=== PATIENT | female | born 1980 | race Caucasian/White ===

== ENCOUNTER 2016-10-17 17:19 | Emergency (ER) | payer OTHER ==
[~2016-10-17] VITALS: Ht 162.6 cm; Wt 55.0 kg
[~2016-10-17 17:19] MED LIST: VIST50CA PO; ZOFR4TAB PO
--- NOTE | 2016-10-17 18:01 | PD ---
HPI Chief Complaint: BA Time Seen by Provider: 18:01 Travel History International Travel<30 days: No Contact w/Intl Traveler<30days: No Traveled to known affect area: No History of Present Illness HPI 35 year-old female presents to the emergency department under a Gutierrez act for psychiatric evaluation. Patient states she got in argument with her mother. She made suicidal statements. Patient does not want to talk about this at this time. Reports tobacco cigarette smoking. Denies any illicit drug use. Denies any acute medical needs. No other symptoms to report. PFSH Past Medical History Anxiety: Yes Depression: Yes Diminished Hearing: No Musculoskeletal: Yes (BACK NECK PAIN) Reproductive: Yes (4 RIGHT OVARIAN CYSTS) Immunizations Current: Yes : 1 Para: 1 Ovarian Cysts: Yes (RT OVARIAN SYST,OVARIAN FIBROID) Past Surgical History Abdominal Surgery: Yes (ABD. LAPROSCOPIC SX. 05/22/06; REPAIR OF KNIFE WOUND TO ABDOMEN) Gynecologic Surgery: Yes (ENDOMETRIOSIS; UTERINE TUMOR REMOVED 05/07;OVARIAN CYSTS 2008) Social History Alcohol Use: No Tobacco Use: Yes (1 PPD) Substance Use: No Allergies-Medications (Allergen,Severity, Reaction): Coded Allergies: Biaxin (Verified Allergy, Severe, HIVES, 10/17/16) Darvocet-N 100 (Verified Allergy, Mild, RASH, 10/17/16) Demerol (Verified Allergy, Mild, ITCH, 10/17/16) Reported Meds & Prescriptions Reported Meds & Active Scripts Active Vistaril (Hydroxyzine Pamoate) 50 Mg Cap 50 Mg PO QID PRN Zofran (Ondansetron HCl) 4 Mg Tab 4 Mg PO Q6HR PRN Reported Trazodone (Trazodone HCl) 50 Mg Tab 50 Mg PO HS Latuda (Lurasidone) 40 Mg Tab 40 Mg PO DAILY Review of Systems Except as stated in HPI: all other systems reviewed are Neg Physical Exam Narrative GENERAL: Well-nourished female patient, in no acute distress SKIN: Focused skin assessment warm/dry. HEAD: Atraumatic. Normocephalic. EYES: Pupils equal and round. No scleral icterus. No injection or drainage. ENT: No nasal bleeding or discharge. Mucous membranes pink and moist. NECK: Trachea midline. No JVD. CARDIOVASCULAR: Regular rate and rhythm. No murmur appreciated. RESPIRATORY: No accessory muscle use. Clear to auscultation. Breath sounds equal bilaterally. GASTROINTESTINAL: Abdomen soft, non-tender, nondistended. Hepatic and splenic margins not palpable. MUSCULOSKELETAL: No obvious deformities. No clubbing. No cyanosis. No edema. NEUROLOGICAL: Awake and alert. No obvious cranial nerve deficits. Motor grossly within normal limits. Normal speech. Data Data Last Documented VS Vital Signs Date Time Temp Pulse Resp B/P Pulse Ox O2 Delivery O2 Flow Rate FiO2 10/17/16 19:47 98.1 79 16 121/73 98 Room Air Orders Complete Blood Count With Diff (10/17/16 17:54) Basic Metabolic Panel (Bmp) (10/17/16 17:54) Ed Urine Pregnancytest Poc (10/17/16 17:54) Psych Screen (10/17/16 17:54) Drug Screen, Random Urine (10/17/16 17:54) Alcohol (Ethanol) (10/17/16 17:54) Labs Laboratory Tests Test 10/17/16 17:54 White Blood Count 7.2 TH/MM3 Red Blood Count 4.27 MIL/MM3 Hemoglobin 13.2 GM/DL Hematocrit 38.8 % Mean Corpuscular Volume 90.9 FL Mean Corpuscular Hemoglobin 30.8 PG Mean Corpuscular Hemoglobin 33.9 % Concent Red Cell Distribution Width 13.2 % Platelet Count 140 TH/MM3 Mean Platelet Volume 12.2 FL Neutrophils (%) (Auto) 48.3 % Lymphocytes (%) (Auto) 39.3 % Monocytes (%) (Auto) 6.5 % Eosinophils (%) (Auto) 4.8 % Basophils (%) (Auto) 1.1 % Neutrophils # (Auto) 3.5 TH/MM3 Lymphocytes # (Auto) 2.8 TH/MM3 Monocytes # (Auto) 0.5 TH/MM3 Eosinophils # (Auto) 0.3 TH/MM3 Basophils # (Auto) 0.1 TH/MM3 CBC Comment AUTO DIFF Differential Comment AUTO DIFF CONFIRMED Platelet Estimate NORMAL Platelet Morphology Comment NORMAL Sodium Level 140 MEQ/L Potassium Level 4.5 MEQ/L Chloride Level 106 MEQ/L Carbon Dioxide Level 24.7 MEQ/L Anion Gap 9 MEQ/L Blood Urea Nitrogen 16 MG/DL Creatinine 0.85 MG/DL Estimat Glomerular Filtration 76 ML/MIN Rate Random Glucose 94 MG/DL Calcium Level 9.0 MG/DL Urine Opiates Screen NEG Urine Barbiturates Screen NEG Urine Amphetamines Screen NEG Urine Benzodiazepines Screen NEG Urine Cocaine Screen NEG Urine Cannabinoids Screen NEG Ethyl Alcohol Level LESS THAN 3 MG/DL MDM Medical Decision Making Medical Screen Exam Complete: Yes Emergency Medical Condition: Yes Medical Record Reviewed: Yes Differential Diagnosis Mood disorder versus personality disorder versus adjustment reaction disorder Narrative Course 35 year-old female presents to the emergency department under Gutierrez act for psychiatric evaluation. Patient appears without distress. She did make suicidal statements earlier today following argument with her mother. CBC and BMP are without acute concern. Toxicology is negative. EtOH is less than 3. Patient is medically cleared and undergo psychiatric screening for further evaluation and disposition. Mental health screening discussed with the patient. Psychiatric screen ordered. Diagnosis Primary Impression: Adjustment reaction Qualified Code: F43.21 - Adjustment disorder with depressed mood Condition: Stable Fatuma Torres Oct 17, 2016 18:01
[2016-10-17 19:01] LABS: AMPHETAMINE, URINE NEG (NEG); BARBITURATES, URINE NEG (NEG); COCAINE, URINE NEG (NEG)
[2016-10-17 19:05] LABS: AUTOMATED NEUTROPHIL # 3.5 TH/MM3 (1.8-7.7); BASOPHIL # 0.1 TH/MM3 (0-0.2); BASOPHIL % 1.1 % (0.0-2.0); EOSINOPHIL # 0.3 TH/MM3 (0-0.4); EOSINOPHIL % 4.8 % (0.0-4.0); HEMATOCRIT 38.8 % (35.0-46.0); LYMPH % 39.3 % (9.0-44.0); LYMPHOCYTE # 2.8 TH/MM3 (1.0-4.8); MEAN CELL VOLUME 90.9 FL (80.0-100.0); MEAN CORPUSCULAR HEMOGLOBIN 30.8 PG (27.0-34.0); MEAN CORPUSCULAR HGB CONC 33.9 % (32.0-36.0); MONO % 6.5 % (0.0-8.0); NEUT % 48.3 % (16.0-70.0); PLATELET COUNT 140 TH/MM3 (150-450); RED BLOOD COUNT 4.27 MIL/MM3 (4.00-5.30); RED CELL DISTRIBUTION WIDTH 13.2 % (11.6-17.2); WHITE BLOOD COUNT 7.2 TH/MM3 (4.0-11.0)
[2016-10-17 19:09] LABS: HEMO FLAGS AUTO DIFF
[2016-10-17 19:26] LABS: ANION GAP 9 MEQ/L (5-15); BICARBONATE 24.7 MEQ/L (21.0-32.0); BLOOD UREA NITROGEN 16 MG/DL (7-18); CHLORIDE 106 MEQ/L (98-107); GLOMERULAR FILTRATION RATE 76 ML/MIN (>89); SODIUM (NA) 140 MEQ/L (136-145)
[2016-10-17 19:27] LABS: POTASSIUM 4.5 MEQ/L (3.5-5.1)
[2016-10-17 19:47] VITALS: BP 121/73; PULSE 79; RESP 16; TEMP 98.1; O2SAT 98
[2016-10-17 20:06] LABS: PLATELET ESTIMATE SMEAR NORMAL (NORMAL); PLATELET MORPHOLOGY NORMAL (NORMAL); SCAN/DIFF AUTO DIFF CONFIRMED
[2016-10-17] MEDS ORDERED: LURA40 PO (20:06)
[2016-10-17] MEDS ORDERED: TRAZ50TA12 PO (20:07)
[2016-10-18 01:40] VITALS: BP 106/60; PULSE 87; RESP 17; O2SAT 98
[2016-10-18 06:10] VITALS: BP 100/68; PULSE 77; RESP 17; O2SAT 99
[2016-10-18 10:00] VITALS: BP 105/65; PULSE 95; RESP 18
[2016-10-18] MEDS ORDERED: diphenhydrAMINE HCL 50 MG CAP PO ONE (12:45)
--- NOTE | 2016-10-18 13:54 | PD ---
History of Present Illness Chief Complaint: Psychiatric Symptoms Time Seen by Provider: 13:30 Travel History International Travel<30 Days: No Contact w/Intl Traveler<30days: No Known affected area: No Legal Status Legal Status: Gutierrez Act Gutierrez Act Signed By: Alison Dowd Gutierrez Act Comment: 10/17/2016 1646 PM History of Present Illness: History of Present Illness HPI 35 year-old female with reported history of bipolar disorder and anxiety who presents to the emergency department under a Gutierrez act initiated by REBECCA . The report stat es the following " Celena was feeling suicidal and was arguing with her mom. Celena wants to kill herself but she could not tell me why". She did not make any attempt at harming herself. She does report that she tried to cut her arm a month ago and has some very superficial scratches on her left arm. She was monitored in [facility] and presented no behavioral concerns and no suicidality. EMR is reviewed. No previous contact with [facility] [place] [place] psychiatry dept. Patient is seen. She is alert and oriented, calm engaging female with short hair. Maintaining basic hygiene. Speech is clear, logical. No psychosis, no afia or hypomania. She reports feeling anxious and is seeking benzos such as Valium, which she reports she has had in the past. There is no suicidal or homicidal ideation. States " One day I do feel suicidal one day I don't". She also reports continued symptoms of anxiety. She reports she was involved in an argument with her mother and wanted to get out of the house and therefore she called the police to take her to [facility]. She also reports that her current medications are not working well in controlling her mood swings as well as her anxiety. PFSH Past Medical History Anxiety: Yes Depression: Yes Diminished Hearing: No Musculoskeletal: Yes (BACK NECK PAIN) Reproductive: Yes (4 RIGHT OVARIAN CYSTS) Immunizations Current: Yes Tetanus Vaccination: > 5 Years Influenza Vaccination: No ?: Unknown LMP: doesn't remember : 1 Para: 1 Ovarian Cysts: Yes (RT OVARIAN CYST,OVARIAN FIBROID) Past Surgical History Abdominal Surgery: Yes (ABD. LAPROSCOPIC SX. 05/22/06; REPAIR OF KNIFE WOUND TO ABDOMEN) Gynecologic Surgery: Yes (ENDOMETRIOSIS; UTERINE TUMOR REMOVED 05/07;OVARIAN CYSTS 2008) Psychiatric History Psychiatric History Hx Psychiatric Treatment: Patient with a stated history of depression and anxiety. She states recenty outpatient treatment at [facility]. History of Inpatient Treatment: No Guns or firearms in home: No Social History Single female. Unemployed. Lives with her mother. Hx Alcohol Use: No Hx Tobacco Use: Yes (1 PPD) Hx Substance Use: Yes (1 ppd) Substance Use Type: Nicotine/Cigarettes Other Substances Used: Current toxicology is negative Hx of Substance Use Treatment: No Family Psychiatric History Negative Allergies-Medications (Allergen,Severity, Reaction): Coded Allergies: Biaxin (Verified Allergy, Severe, HIVES, 10/17/16) Darvocet-N 100 (Verified Allergy, Mild, RASH, 10/17/16) Demerol (Verified Allergy, Mild, ITCH, 10/17/16) Reported Meds & Prescriptions Reported Meds & Active Scripts Active Vistaril (Hydroxyzine Pamoate) 50 Mg Cap 50 Mg PO QID PRN Zofran (Ondansetron HCl) 4 Mg Tab 4 Mg PO Q6HR PRN Reported Trazodone (Trazodone HCl) 50 Mg Tab 50 Mg PO HS Latuda (Lurasidone) 40 Mg Tab 40 Mg PO DAILY Review of Systems Except as stated in HPI: all other systems reviewed are Neg Exam Alert: Yes [place]: Person (ox4) Mood: Anxious Affect: Appropriate Speech: Clear, Logical Eye Contact: Normal Memory Intact: Comment (No impairmetn) Hallucinations: Other (Negative) Delusions: No Suicidal: Ideation (denies any) Homicidal: Ideation (denies any) Insight/Judgement Fair. Not impaired. MDM Medical Decision Making Medical Record Reviewed: Yes Assessment/Plan 35 year old female under a BA after she reported feeling suicidal in context of an argument with her mother. She did not make any attempts at harming herself. At this time she is requesting discharge and wants to follow up at [facility]. She does not meet criteria to remain under BA. Lift BA. Recommend follow up with [facility]. Orders Complete Blood Count With Diff (10/17/16 17:54) Basic Metabolic Panel (Bmp) (10/17/16 17:54) Ed Urine Pregnancytest Poc (10/17/16 17:54) Psych Screen (10/17/16 17:54) Drug Screen, Random Urine (10/17/16 17:54) Alcohol (Ethanol) (10/17/16 17:54) Diet Regular Basic (10/18/16 Breakfast) Diet Regular Basic (10/18/16 Lunch) Diphenhydramine (Benadryl) (10/18/16 12:45) Hydroxyzine Pamoate (Vistaril) (10/18/16 13:45) Results Vital Signs Date Time Temp Pulse Resp B/P Pulse Ox O2 Delivery O2 Flow Rate FiO2 10/18/16 10:00 95 18 105/65 Room Air 10/18/16 06:10 77 17 100/68 99 Room Air 10/18/16 01:40 87 17 106/60 98 Room Air 10/17/16 19:47 98.1 79 16 121/73 98 Room Air Laboratory Tests Test 10/17/16 17:54 White Blood Count 7.2 Red Blood Count 4.27 Hemoglobin 13.2 Hematocrit 38.8 Mean Corpuscular Volume 90.9 Mean Corpuscular Hemoglobin 30.8 Mean Corpuscular Hemoglobin 33.9 Concent Red Cell Distribution Width 13.2 Platelet Count 140 Mean Platelet Volume 12.2 Neutrophils (%) (Auto) 48.3 Lymphocytes (%) (Auto) 39.3 Monocytes (%) (Auto) 6.5 Eosinophils (%) (Auto) 4.8 Basophils (%) (Auto) 1.1 Neutrophils # (Auto) 3.5 Lymphocytes # (Auto) 2.8 Monocytes # (Auto) 0.5 Eosinophils # (Auto) 0.3 Basophils # (Auto) 0.1 CBC Comment AUTO DIFF Differential Comment AUTO DIFF CONFIRMED Platelet Estimate NORMAL Platelet Morphology Comment NORMAL Sodium Level 140 Potassium Level 4.5 Chloride Level 106 Carbon Dioxide Level 24.7 Anion Gap 9 Blood Urea Nitrogen 16 Creatinine 0.85 Estimat Glomerular Filtration 76 Rate Random Glucose 94 Calcium Level 9.0 Urine Opiates Screen NEG Urine Barbiturates Screen NEG Urine Amphetamines Screen NEG Urine Benzodiazepines Screen NEG Urine Cocaine Screen NEG Urine Cannabinoids Screen NEG Ethyl Alcohol Level LESS THAN 3 Diagnosis Primary Impression: Adjustment reaction Psychiatrically Cleared: Yes Med/ Other Pt Specific Info: No Change to Meds Disposition: 01 DISCHARGE HOME Condition: Stable Problem Qualifiers Primary Impression: Adjustment reaction Qualified Code: F43.23 - Adjustment disorder with mixed anxiety and depressed mood Haylie Michel Oct 18, 2016 13:54
[2016-10-18 14:00] VITALS: BP 105/65; TEMP 98
== END 2016-10-18 14:10 | disposition home or self-care (01) ==
LOC: NEDAMB 17:19 → NEPJ 10-18 14:10
DX: F43.23 Adjustment disorder with mixed anxiety and depressed mood (principal); Z79.899 Other long term (current) drug therapy
CPT/HCPCS: 80048; 80307; 84703; 85025; 99284; Q0163

== ENCOUNTER 2016-12-05 11:45 | Emergency (ER) | payer OTHER ==
[~2016-12-05] VITALS: Ht 165.1 cm; Wt 61.0 kg
[~2016-12-05 11:45] MED LIST changes: +LURA40 PO; +TRAZ50TA12 PO
[2016-12-05 12:24] VITALS: BP 132/62; PULSE 75; RESP 16; TEMP 98.6; O2SAT 100
--- NOTE | 2016-12-05 12:37 | PD ---
HPI Chief Complaint: Psychiatric Symptoms Time Seen by Provider: 12:06 Travel History International Travel<30 days: No Contact w/Intl Traveler<30days: No Traveled to known affect area: No History of Present Illness HPI The patient is a 36-year-old female who presents to the emergency department via police as a Gutierrez act. According to the police affidavit the patient was suicidal. The patient states she has a history of bipolar affective disorder was recently at [facility] where her psychiatrist is located, Dr. Larsen. The patient told her psychiatrist she was not ready for discharge earlier today, however, was discharged. She does note fossa suicide, however, has thoughts of suicide every day. She has attempted to harm herself in the past by cutting her wrists bilaterally. She also has a history of overdose. She does note intermittent thoughts of suicide currently, feels like she is still too unstable to be discharged because she is having highs and lows secondary to the bipolar affective disorder. She also notes increasing anxiety and a panic attack earlier today. She denies any illicit drug use or alcohol use today. She denies any current physical complaints. The patient was living with her mother, however, states her father was supposed to pick her up tonight at 6 PM to [place]. [facility] Past Medical History Anxiety: Yes Depression: Yes Diminished Hearing: No Musculoskeletal: Yes (BACK NECK PAIN) Reproductive: Yes (4 RIGHT OVARIAN CYSTS) Immunizations Current: Yes ?: Unknown : 1 Para: 1 Ovarian Cysts: Yes (RT OVARIAN CYST,OVARIAN FIBROID) Past Surgical History Abdominal Surgery: Yes (ABD. LAPROSCOPIC SX. 05/22/06; REPAIR OF KNIFE WOUND TO ABDOMEN) Gynecologic Surgery: Yes (ENDOMETRIOSIS; UTERINE TUMOR REMOVED 05/07;OVARIAN CYSTS 2008) Social History Alcohol Use: No Tobacco Use: No Substance Use: No Allergies-Medications (Allergen,Severity, Reaction): Coded Allergies: clarithromycin (Unverified Allergy, Severe, HIVES, 11/12/16) acetaminophen (Unverified Allergy, Mild, RASH, 11/12/16) meperidine (Unverified Allergy, Mild, ITCH, 11/12/16) propoxyphene (Unverified Allergy, Mild, RASH, 11/12/16) Reported Meds & Prescriptions Reported Meds & Active Scripts Active Vistaril (Hydroxyzine Pamoate) 50 Mg Cap 50 Mg PO QID PRN Zofran (Ondansetron HCl) 4 Mg Tab 4 Mg PO Q6HR PRN Reported Trazodone (Trazodone HCl) 50 Mg Tab 50 Mg PO HS Latuda (Lurasidone) 40 Mg Tab 40 Mg PO DAILY Review of Systems Except as stated in HPI: all other systems reviewed are Neg Psychiatric: Positive: Depression, Suicidal Ideations, Mood Disorder Physical Exam Narrative GENERAL: Awake, alert, nontoxic-appearing 36-year-old female who appears her stated age and is in no acute respiratory distress. SKIN: Focused skin assessment warm/dry. HEAD: Atraumatic. Normocephalic. EYES: No injection or drainage. ENT: No nasal bleeding or discharge. Mucous membranes pink and moist. NECK: Trachea midline. No JVD. CARDIOVASCULAR: Regular rate and rhythm. No murmur appreciated. RESPIRATORY: No accessory muscle use. Clear to auscultation. Breath sounds equal bilaterally. GASTROINTESTINAL: Abdomen soft, non-tender, nondistended. Hepatic and splenic margins not palpable. MUSCULOSKELETAL: Old appearing very superficial scars to the volar aspect of the forearms bilateral. NEUROLOGICAL: Awake and alert. No obvious cranial nerve deficits. Motor grossly within normal limits. Normal speech. Nonfocal. PSYCHIATRIC: Appropriate mood and affect; insight and judgment normal. Data Data Last Documented VS Vital Signs Date Time Temp Pulse Resp B/P (MAP) Pulse Ox O2 Delivery O2 Flow Rate FiO2 12/05/16 12:24 98.6 75 16 132/62 (85) 100 Orders Orders Complete Blood Count With Diff (12/05/16 12:19) Comprehensive Metabolic Panel (12/05/16 12:19) Thyroid Stimulating Hormone (12/05/16 12:19) Psych Screen (12/05/16 12:19) Drug Screen, Random Urine (12/05/16 12:19) Alcohol (Ethanol) (12/05/16 12:19) Diet Regular Basic (12/05/16 Lunch) Labs Laboratory Tests Test 12/05/16 12:34 12/05/16 12:55 White Blood Count 7.7 TH/MM3 Red Blood Count 3.95 MIL/MM3 Hemoglobin 11.8 GM/DL Hematocrit 35.9 % Mean Corpuscular Volume 91.0 FL Mean Corpuscular Hemoglobin 29.8 PG Mean Corpuscular Hemoglobin Concent 32.8 % Red Cell Distribution Width 13.7 % Platelet Count 227 TH/MM3 Mean Platelet Volume 9.3 FL Neutrophils (%) (Auto) 56.2 % Lymphocytes (%) (Auto) 34.7 % Monocytes (%) (Auto) 5.3 % Eosinophils (%) (Auto) 2.6 % Basophils (%) (Auto) 1.2 % Neutrophils # (Auto) 4.3 TH/MM3 Lymphocytes # (Auto) 2.7 TH/MM3 Monocytes # (Auto) 0.4 TH/MM3 Eosinophils # (Auto) 0.2 TH/MM3 Basophils # (Auto) 0.1 TH/MM3 CBC Comment DIFF FINAL Differential Comment Blood Urea Nitrogen 13 MG/DL Creatinine 0.72 MG/DL Random Glucose 73 MG/DL Total Protein 7.9 GM/DL Albumin 4.0 GM/DL Calcium Level 9.0 MG/DL Alkaline Phosphatase 46 U/L Aspartate Amino Transf (AST/SGOT) 19 U/L Alanine Aminotransferase (ALT/SGPT) 54 U/L Total Bilirubin 0.3 MG/DL Sodium Level 138 MEQ/L Potassium Level 3.8 MEQ/L Chloride Level 105 MEQ/L Carbon Dioxide Level 26.2 MEQ/L Anion Gap 7 MEQ/L Estimat Glomerular Filtration Rate 92 ML/MIN Thyroid Stimulating Hormone 3rd Gen 1.310 uIU/ML Ethyl Alcohol Level LESS THAN 3 MG/DL Urine Opiates Screen NEG Urine Barbiturates Screen NEG Urine Amphetamines Screen NEG Urine Benzodiazepines Screen NEG Urine Cocaine Screen NEG Urine Cannabinoids Screen NEG MDM Medical Decision Making Medical Screen Exam Complete: Yes Emergency Medical Condition: Yes Medical Record Reviewed: Yes Interpretation(s) Laboratory Tests Test 12/05/16 12:34 12/05/16 12:55 White Blood Count 7.7 TH/MM3 Red Blood Count 3.95 MIL/MM3 Hemoglobin 11.8 GM/DL Hematocrit 35.9 % Mean Corpuscular Volume 91.0 FL Mean Corpuscular Hemoglobin 29.8 PG Mean Corpuscular Hemoglobin Concent 32.8 % Red Cell Distribution Width 13.7 % Platelet Count 227 TH/MM3 Mean Platelet Volume 9.3 FL Neutrophils (%) (Auto) 56.2 % Lymphocytes (%) (Auto) 34.7 % Monocytes (%) (Auto) 5.3 % Eosinophils (%) (Auto) 2.6 % Basophils (%) (Auto) 1.2 % Neutrophils # (Auto) 4.3 TH/MM3 Lymphocytes # (Auto) 2.7 TH/MM3 Monocytes # (Auto) 0.4 TH/MM3 Eosinophils # (Auto) 0.2 TH/MM3 Basophils # (Auto) 0.1 TH/MM3 CBC Comment DIFF FINAL Differential Comment Blood Urea Nitrogen 13 MG/DL Creatinine 0.72 MG/DL Random Glucose 73 MG/DL Total Protein 7.9 GM/DL Albumin 4.0 GM/DL Calcium Level 9.0 MG/DL Alkaline Phosphatase 46 U/L Aspartate Amino Transf (AST/SGOT) 19 U/L Alanine Aminotransferase (ALT/SGPT) 54 U/L Total Bilirubin 0.3 MG/DL Sodium Level 138 MEQ/L Potassium Level 3.8 MEQ/L Chloride Level 105 MEQ/L Carbon Dioxide Level 26.2 MEQ/L Anion Gap 7 MEQ/L Estimat Glomerular Filtration Rate 92 ML/MIN Thyroid Stimulating Hormone 3rd Gen 1.310 uIU/ML Ethyl Alcohol Level LESS THAN 3 MG/DL Urine Opiates Screen NEG Urine Barbiturates Screen NEG Urine Amphetamines Screen NEG Urine Benzodiazepines Screen NEG Urine Cocaine Screen NEG Urine Cannabinoids Screen NEG Differential Diagnosis Differential diagnosis includes bipolar affective disorder, schizophrenia, substance induced mood disorder, adjustment reaction, stress reaction, malingering. Narrative Course Labs were drawn and sent. Psychiatric evaluation was ordered. Labs are unremarkable. The patient is medically cleared to be evaluated by psychiatry. Diagnosis Primary Impression: Bipolar affective disorder Qualified Codes: F31.62 - Bipolar disorder, current episode mixed, moderate Condition: Stable Antonio Schwab MD Dec 05, 2016 12:37
[2016-12-05 12:48] LABS: AUTOMATED NEUTROPHIL # 4.3 TH/MM3 (1.8-7.7); BASOPHIL # 0.1 TH/MM3 (0-0.2); BASOPHIL % 1.2 % (0.0-2.0); EOSINOPHIL # 0.2 TH/MM3 (0-0.4); EOSINOPHIL % 2.6 % (0.0-4.0); HEMATOCRIT 35.9 % (35.0-46.0); HEMO FLAGS DIFF FINAL; LYMPH % 34.7 % (9.0-44.0); LYMPHOCYTE # 2.7 TH/MM3 (1.0-4.8); MEAN CORPUSCULAR HEMOGLOBIN 29.8 PG (27.0-34.0); MEAN CORPUSCULAR HGB CONC 32.8 % (32.0-36.0); MONO % 5.3 % (0.0-8.0); NEUT % 56.2 % (16.0-70.0); PLATELET COUNT 227 TH/MM3 (150-450); RED BLOOD COUNT 3.95 MIL/MM3 (4.00-5.30); RED CELL DISTRIBUTION WIDTH 13.7 % (11.6-17.2); WHITE BLOOD COUNT 7.7 TH/MM3 (4.0-11.0)
[2016-12-05 13:01] LABS: ALT (GPT) 54 U/L (10-53); ANION GAP 7 MEQ/L (5-15); AST (GOT) 19 U/L (15-37); BICARBONATE 26.2 MEQ/L (21.0-32.0); BLOOD UREA NITROGEN 13 MG/DL (7-18); CHLORIDE 105 MEQ/L (98-107); GLOMERULAR FILTRATION RATE 92 ML/MIN (>89); POTASSIUM 3.8 MEQ/L (3.5-5.1); SODIUM (NA) 138 MEQ/L (136-145)
[2016-12-05 13:11] LABS: ALKALINE PHOSPHATASE 46 U/L (45-117); TOTAL BILIRUBIN ADULT 0.3 MG/DL (0.2-1.0)
[2016-12-05 13:18] LABS: ALCOHOL LESS THAN 3 MG/DL (0-5)
[2016-12-05 16:47] VITALS: BP 132/62; PULSE 75; RESP 18; O2SAT 100
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
--- NOTE | 2016-12-05 17:25 | PD ---
Physical Exam Date Seen by Provider: Dec 05, 2016 Time Seen by Provider: 17:23 Narrative Please refer to previous providers note. I was asked to disposition the patient. In short patient was Brenda acted and her Gutierrez act was listed. She has no medical issues. I was asked to disposition. Data Data Last Documented VS Vital Signs Date Time Temp Pulse Resp B/P (MAP) Pulse Ox O2 Delivery O2 Flow Rate FiO2 12/05/16 16:50 12/05/16 16:47 75 18 100 Room Air 12/05/16 12:24 98.6 Orders Orders Complete Blood Count With Diff (12/05/16 12:19) Comprehensive Metabolic Panel (12/05/16 12:19) Thyroid Stimulating Hormone (12/05/16 12:19) Psych Screen (12/05/16 12:19) Drug Screen, Random Urine (12/05/16 12:19) Alcohol (Ethanol) (12/05/16 12:19) Diet Regular Basic (12/05/16 Lunch) Diet Regular Basic (12/05/16 Dinner) Labs Laboratory Tests Test 12/05/16 12:34 12/05/16 12:55 White Blood Count 7.7 TH/MM3 Red Blood Count 3.95 MIL/MM3 Hemoglobin 11.8 GM/DL Hematocrit 35.9 % Mean Corpuscular Volume 91.0 FL Mean Corpuscular Hemoglobin 29.8 PG Mean Corpuscular Hemoglobin Concent 32.8 % Red Cell Distribution Width 13.7 % Platelet Count 227 TH/MM3 Mean Platelet Volume 9.3 FL Neutrophils (%) (Auto) 56.2 % Lymphocytes (%) (Auto) 34.7 % Monocytes (%) (Auto) 5.3 % Eosinophils (%) (Auto) 2.6 % Basophils (%) (Auto) 1.2 % Neutrophils # (Auto) 4.3 TH/MM3 Lymphocytes # (Auto) 2.7 TH/MM3 Monocytes # (Auto) 0.4 TH/MM3 Eosinophils # (Auto) 0.2 TH/MM3 Basophils # (Auto) 0.1 TH/MM3 CBC Comment DIFF FINAL Differential Comment Blood Urea Nitrogen 13 MG/DL Creatinine 0.72 MG/DL Random Glucose 73 MG/DL Total Protein 7.9 GM/DL Albumin 4.0 GM/DL Calcium Level 9.0 MG/DL Alkaline Phosphatase 46 U/L Aspartate Amino Transf (AST/SGOT) 19 U/L Alanine Aminotransferase (ALT/SGPT) 54 U/L Total Bilirubin 0.3 MG/DL Sodium Level 138 MEQ/L Potassium Level 3.8 MEQ/L Chloride Level 105 MEQ/L Carbon Dioxide Level 26.2 MEQ/L Anion Gap 7 MEQ/L Estimat Glomerular Filtration Rate 92 ML/MIN Thyroid Stimulating Hormone 3rd Gen 1.310 uIU/ML Ethyl Alcohol Level LESS THAN 3 MG/DL Urine Opiates Screen NEG Urine Barbiturates Screen NEG Urine Amphetamines Screen NEG Urine Benzodiazepines Screen NEG Urine Cocaine Screen NEG Urine Cannabinoids Screen NEG MDM Medical Record Reviewed: Yes Supervised Visit with GABBY: No Narrative Course 36-year-old female that presents to the ED for evaluation of psychiatric illness. Please refer to previous provider note. I was asked to disposition patient. Patient has no medical complaints. Patient was seen by psychiatrist who agrees that she's not hurt herself and lifted the Gutierrez act. Patient will be discharged home with instructions to follow with outpatient psychiatrist. See ED worsening symptoms. Follow-up with PCP. Diagnosis Primary Impression: PTSD (post-traumatic stress disorder) Additional Impression: Bipolar affective disorder Qualified Codes: F31.62 - Bipolar disorder, current episode mixed, moderate Patient Instructions: General Instructions, Post Traumatic Stress Disorder (ED) , Medical Clearance for Psychiatric Care (ED) Departure Forms: Tests/Procedures Additional Instruction: DX: PTSD Please return to ED if symptoms worsen Disposition: 01 DISCHARGE HOME Condition: Stable Klever Granda Dec 05, 2016 17:25
== END 2016-12-05 19:07 | disposition home or self-care (01) ==
LOC: NEPE 11:45 → NEPJ 19:07
DX: F31.62 Bipolar disorder, current episode mixed, moderate (principal); F43.10 Post-traumatic stress disorder, unspecified; Z79.899 Other long term (current) drug therapy; Z86.59 Personal history of other mental and behavioral disorders; Z87.39 Personal history of other diseases of the musculoskeletal system and connective tissue; Z87.42 Personal history of other diseases of the female genital tract
CPT/HCPCS: 80053; 80307; 84443; 85025; 99284

== ENCOUNTER 2016-12-31 11:48 | Emergency (ER) | payer SELFPAY ==
[~2016-12-31] VITALS: Ht 162.6 cm; Wt 59.0 kg
[2016-12-31 11:54] VITALS: BP 140/60; PULSE 110; RESP 18; TEMP 98.5; O2SAT 97
--- NOTE | 2016-12-31 12:07 | PD ---
Data Data Last Documented VS Vital Signs Date Time Temp Pulse Resp B/P (MAP) Pulse Ox O2 Delivery O2 Flow Rate FiO2 12/31/16 16:31 12/31/16 12:25 18 12/31/16 11:54 98.5 110 97 Room Air Orders Orders Psych Screen (12/31/16 12:34) MDM Medical Record Reviewed: Yes Supervised Visit with GABBY: No Narrative Course This report is in ERROR Please disregard this report and all prior copies ! This report is in ERROR Please disregard this report and all prior copies ! This report is in ERROR Please disregard this report and all prior copies ! Maxi Thorne MD Dec 31, 2016 12:07
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
[2016-12-31] MEDS ORDERED: SERO200T PO (12:33)
[2016-12-31] MEDS ORDERED: BUSP15TA PO (12:33)
[2016-12-31] MEDS ORDERED: ARIP1TAB5 PO (12:33)
[2016-12-31] MEDS ORDERED: LEXA5TAB PO (12:33)
== END 2016-12-31 16:44 | disposition home or self-care (01) ==
LOC: NEPB 11:48
DX: F32.9 Major depressive disorder, single episode, unspecified (principal)
CPT/HCPCS: 99283

== ENCOUNTER 2018-01-14 14:40 | Observation (INO) ==
--- NOTE | 2018-01-14 17:21 | ED ---
HPI General Chief complaint: Skin/Abscess/Foreign Body Stated complaint: Insect Bites Time Seen by Provider: 01/14/18 16:54 Source: patient Mode of arrival: ambulatory Limitations: no limitations History of Present Illness HPI narrative: Patient is a 37-year-old female here today for multiple spots to skin that appeared yesterday. They started out as insect bite looking and now has significant cellulitis surrounding them. She has beginnings of abscess formation to right forearm with surrounding cellulitis, generalized to right wrist, large area of cellulitis to left medial thigh and to right lateral thigh. She was just in [facility] for depression and cutting she takes Seroquel trazodone BuSpar. She reporst significant pain 01/07, she did not take anything for her pain. Palpation makes it worse, nothing makes it better. MD complaint: Reports rash and abscess/boil Onset (ago): day(s) (yesterday) Tetanus Immunization: Unsure Location: Reports LUE, RUE, LLE and RLE Severity: moderate Severity scale (1-10): 6 Quality: Reports burning and aching Pain Consistency: constant Relieving factors: none Exacerbating factors: palpation Treatments prior to arrival: Reports none Related Data Home Medications Medication Instructions Recorded Confirmed quetiapine [Seroquel] 100 mg PO TID 12/14/17 trazodone 100 mg PO HS 12/14/17 12/14/17 buspirone 30 mg PO BID 01/14/18 01/14/18 Allergies Allergy/AdvReac Type Severity Reaction Status Date / Time clarithromycin Allergy Severe HIVES Verified 01/14/18 15:50 acetaminophen Allergy Mild RASH Verified 01/14/18 15:50 meperidine Allergy Mild ITCH Verified 01/14/18 15:50 propoxyphene Allergy Mild RASH Verified 01/14/18 15:50 Review of Systems ROS: all other systems reviewed are negative [facility] Medical History Medical History Bipolar disorder (Acute) Family History Family History Other Family history normal Social History Social History Substance History: No History of Abuse and Past History Second Hand Smoke Exposure: Yes Smoking Status: Current every day smoker Tobacco Type: Cigarettes How Often Do You Have a Drink Containing Alcohol: Never Recent Travel in [facility] within the Last 8 Weeks: No Recent Out of Country Travel within the Last 8 Weeks: No Immunization History Tetanus Immunization: Unsure Exam Narrative Exam Narrative: GENERAL: Pt awake, aler, oriented. SKIN:R wrist with 1-2 cm area of induration, w surrounding cellulitis approx 3 inches. R forearm with approx 2 cm area of induration with a esquivel, no drainage, 3-4 cm area of cellulitis surrounding induration. R thigh with 2-3 cm area of induration with approximately 6 inches surrounding cellulitis. L thigh with 3 cm area of induration with surrounding cellulitis measuring approx 12 CM. HEAD: Atraumatic. Normocephalic. EYES: Pupils equal and round. No scleral icterus. No injection or drainage. ENT: No nasal bleeding or discharge. Mucous membranes pink and moist. NECK: Trachea midline. No JVD. CARDIOVASCULAR: Regular rate and rhythm. No murmur appreciated. RESPIRATORY: No accessory muscle use. Clear to auscultation. Breath sounds equal bilaterally. GASTROINTESTINAL: Abdomen soft, non-tender, nondistended. Hepatic and splenic margins not palpable. MUSCULOSKELETAL: No obvious deformities. No clubbing. No cyanosis. No edema. NEUROLOGICAL: Awake and alert. No obvious cranial nerve deficits. Motor grossly within normal limits. Normal speech. PSYCHIATRIC: Appropriate mood and affect; insight and judgment normal. [employer]NAGER- White/green vaginal discharge now reported. Pelvic exam done, samples obtained. Assisted by RN. Discharge appears yeast-like. She was just treated for "vaginal infections" with doxycycline and noticed the discharge changed after that. Chandelier sign negative, Nonpalpable and non tender ovaries bilaterally. Course Initial Documented Vital Signs Temperature 98.4 F 01/14/18 14:50 Pulse Rate 112 H 01/14/18 14:50 Respiratory Rate 20 01/14/18 14:50 Blood Pressure 131/66 01/14/18 14:50 Pulse Oximetry 98 01/14/18 14:50 Last Documented Vital Signs Temperature 98.4 F 01/14/18 14:50 Pulse Rate 112 H 01/14/18 14:50 Respiratory Rate 20 01/14/18 14:50 Blood Pressure 131/66 01/14/18 14:50 Pulse Oximetry 98 01/14/18 14:50 Medical Decision Making [facility] Narrative Medical decision making narrative: Patient is a 37-year-old female here today for multiple small abscesses with significant surrounding cellulitis. She was just released from [facility] where she was placed on Seroquel trazodone and BuSpar for depression and insomnia and cutting. She did not take any medication for her pain. She is rating it 10 out of 10 she is tachycardic. Lab work with septic workup ordered fluid bolus, and IV clindamycin given for MRSA coverage. Labs reviewed which are stable. Elevated neutrophils, white blood cell count in normal range, lactic acid also normal range. However due to patient's significant pain and cellulitis that is worsening will admit for 23-hour observation under the care of Dr. Blevins whom I spoke with at approximately 1900. She requested that I order a tox screen which I did. Stable for admission. Apparently Dr. Blevins came to evaluate patient, once she did, the patient started complaining of vaginal discharge and possible STI exposure. Nursing setting up for pelvic examination. Medical Screen Exam Complete: Yes Emergency Medical Condition: Yes Differential Diagnosis Differential Diagnosis: MRSA, cellulitis, IV drug use, thrombophlebitis, insect bite. Lab Data Lab results reviewed: Yes I reviewed the patient's lab results. Result diagrams: 01/14/18 17:30 01/14/18 17:30 Lab Results 01/14/18 01/14/18 01/14/18 Range/Units 17:30 17:30 17:30 WBC 10.2 (4.0-11.0) th/mm3 RBC 3.75 L (4.00-5.30) mil/mm3 Hgb 12.1 (11.6-15.3) gm/dL Hct 35.3 (35.0-46.0) % MCV 94.2 (80.0-100.0) fL MCH 32.4 (27.0-34.0) pg MCHC 34.4 (32.0-36.0) % RDW 13.9 (11.6-17.2) % Plt Count 158 (150-450) th/mm3 MPV 10.8 (7.0-11.0) fL Neut % (Auto) 70.4 H (16.0-70.0) % Lymph % (Auto) 21.2 (9.0-44.0) % [place] % (Auto) 5.8 (0.0-8.0) % Eos % (Auto) 2.3 (0.0-4.0) % Baso % (Auto) 0.3 (0.0-2.0) % Neut # (Auto) 7.2 (1.8-7.7) th/mm3 Lymph # (Auto) 2.2 (1.0-4.8) th/mm3 [place] # (Auto) 0.6 (0.0-0.9) th/mm3 Eos # (Auto) 0.2 (0.0-0.4) th/mm3 Baso # (Auto) 0.0 (0.0-0.2) th/mm3 WBC Differential . Differential Comment Auto diff final Sodium 139 (136-145) meq/L Potassium 4.0 (3.5-5.1) meq/L Chloride 107 (98-107) meq/L Carbon Dioxide 25.6 (21.0-32.0) meq/L Anion Gap 6 (5-15) meq/L BUN 12 (7-18) mg/dL Creatinine 0.72 (0.50-1.00) mg/dL Estimated GFR Greater than 89 (>89) mL/min Random Glucose 85 (74-106) mg/dL Lactic Acid 0.6 (0.4-2.0) mmol/L Calcium 8.5 (8.5-10.1) mg/dL Total Bilirubin 0.2 (0.2-1.0) mg/dL AST 12 L (15-37) U/L ALT 16 (10-53) U/L Alkaline Phosphatase 48 (45-117) U/L Total Protein 7.5 (6.4-8.2) g/dL Albumin 3.6 (3.4-5.0) g/dL Discharge Plan Discharge Disposition Patient Disposition: 30 Still Patient Discharge Condition Condition: Stable Discharge Order Discharge Orders: Discharge Order (Routine); Ordered 01/14/18 Ordered By: Sherry Carpenter Discharge Details Diagnosis: Cellulitis Physicians Team ED Provider: Antony Aguillon ED Midlevel Provider: Sherry Carpenter Primary Care Provider: Primary Care Luann Chan Attending Provider: Maria Alejandra Blevins Status ED Status: Admitted Observation Patient
[2018-01-14 17:44] LABS: Baso % (Auto) 0.3 % (0.0-2.0); Eos # (Auto) 0.2 th/mm3 (0.0-0.4); Eos % (Auto) 2.3 % (0.0-4.0); Hematocrit 35.3 % (35.0-46.0); Hemoglobin 12.1 gm/dL (11.6-15.3); Lymph # (Auto) 2.2 th/mm3 (1.0-4.8); Lymph % (Auto) 21.2 % (9.0-44.0); Mean Corpuscular HGB Conc 34.4 % (32.0-36.0); Mean Corpuscular Hemoglobin 32.4 pg (27.0-34.0); Mean Corpuscular Volume 94.2 fL (80.0-100.0); Mean Platelet Volume 10.8 fL (7.0-11.0); Mono # (Auto) 0.6 th/mm3 (0.0-0.9); Mono % (Auto) 5.8 % (0.0-8.0); Neut # (Auto) 7.2 th/mm3 (1.8-7.7); Neut % (Auto) 70.4 % (16.0-70.0); Platelet Count 158 th/mm3 (150-450); Red Blood Count 3.75 mil/mm3 (4.00-5.30); Red Cell Distribution Width 13.9 % (11.6-17.2); White Blood Count 10.2 th/mm3 (4.0-11.0)
[2018-01-14 18:00] LABS: Alanine Aminotransferase 16 U/L (10-53); Albumin 3.6 g/dL (3.4-5.0); Anion Gap 6 meq/L (5-15); Aspartate Aminotransferase 12 U/L (15-37); Blood Urea Nitrogen 12 mg/dL (7-18); Calcium 8.5 mg/dL (8.5-10.1); Carbon Dioxide 25.6 meq/L (21.0-32.0); Chloride 107 meq/L (98-107); Glomerular Filtration Rate Greater Than 89 mL/min (>89); Glucose,Random 85 mg/dL (74-106); Sodium 139 meq/L (136-145)
[2018-01-14] MEDS ORDERED: Sodium Chlor 0.9% Inj 500 ML IV.SIG SCH (18:00)
[2018-01-14 18:03] LABS: Alkaline Phosphatase 48 U/L (45-117); Total Protein 7.5 g/dL (6.4-8.2)
[2018-01-14] MEDS ORDERED: Tetanus/Diphtheria Toxoid Adult Vaccine Inj 0.5 ML Vial IM ONE (19:27)
[2018-01-14] MEDS ORDERED: Lidocaine 1%/Epinephrine 1:100,000 Inj 50 ML Vial INFILTRATN ONE (19:27)
[2018-01-14] MEDS ORDERED: Acetaminophen 325 MG Tablet PO PRN (19:49)
[2018-01-14] MEDS ORDERED: Bisacodyl 10 MG Supp RECTAL PRN (19:49)
--- NOTE | 2018-01-14 19:55 | P.HP ---
History of Present Illness Service: [facility] Primary Care Physician: No Primary Care Physician History of Present Illness: 37-year-old female with a past medical history significant for bipolar disorder , recently discharged from inpatient treatment at [facility] for a episode of cutting and being off of her medications for several months presents to the emergency department for the evaluation of multiple areas of cellulitis on her left inner thigh, right ankle with various small abscesses on all 4 extremities. The patient denies IV drug abuse. She does not know where the infection came from. She denies any fever/chills. No chest pain or shortness of breath. No abdominal pain. No nausea/vomiting/diarrhea. The patient also complains of vaginal discharge. She reports that 3 weeks ago she was seen in urgent care and given prescriptions for doxycycline and Flagyl which she completed as instructed. She reports her vaginal discharge is still foul and copious. Review of Systems All other systems reviewed negative except as stated in HPI PMFSH - History History Provided By: Patient - Medical History Medical History: Medical History (Last Updated 01/14/18 @ 19:52 by Maria Alejandra Blevins MD) Bipolar disorder - Surgical History Surgical History: Surgical History (Last Reviewed 01/14/18 @ 19:52 by Maria Alejandra Blevins MD) Hx of laparoscopy - Family History Family History: Family History (Last Updated 01/14/18 @ 19:53 by Maria Alejandra Blevins MD) Other Family history normal - Tobacco History Second Hand Smoke Exposure: Yes Tobacco Use In Past 30 Days: Yes Smoking Status: Current every day smoker Tobacco Type: Cigarettes - Alcohol History How Often Do You Have a Drink Containing Alcohol: Never - Substance Use History Substance History: No History of Abuse, Past History - Travel History Recent Travel in the [facility] Within the Last 8 Weeks: No Recent Travel Out of the Country Within the Last 8 Weeks: No - Immunization History Tetanus Immunization: Unsure Medications and Allergies Active Medications: Active Medications Clindamycin Phosphate 900 mg/ (Sodium Chloride) 106 mls @ 100 mls/hr IV.SIG Q8H ERIC Last Infusion: 01/14/18 18:35 Dose: Infused Sodium Chloride (Ns Inj) 500 mls @ 0 mls/hr IV.SIG BOLUS ERIC Last Infusion: 01/14/18 18:34 Dose: Infused Sodium Chloride (Ns Flush) 2 ml IV.FLUSH PRN PRN PRN Reason: FLUSH AFTER USING IV ACCESS Allergies Allergy/AdvReac Type Severity Reaction Status Date / Time clarithromycin Allergy Severe HIVES Verified 01/14/18 15:50 acetaminophen Allergy Mild RASH Verified 01/14/18 15:50 meperidine Allergy Mild ITCH Verified 01/14/18 15:50 propoxyphene Allergy Mild RASH Verified 01/14/18 15:50 Home Medications Medication Instructions Recorded Confirmed Type quetiapine [Seroquel] 100 mg PO TID 12/14/17 History trazodone 100 mg PO HS 12/14/17 12/14/17 History buspirone 30 mg PO BID 01/14/18 01/14/18 History Exam Vital signs: Vital Signs 01/14/18 14:50 Temperature 98.4 F Pulse Rate 112 H Respiratory Rate 20 Blood Pressure 131/66 Pulse Oximetry 98 Intake & Output 01/14/18 01/14/18 01/15/18 06:59 18:59 06:59 Intake Total 606 / 606 Balance 606 / 606 Weight 70.307 kg Intake: IV 606 / 606 Cleocin Inj 900 MG In NS Inj 106 / 106 100 ML @ 100 mls/hr IV.SIG Q8H ERIC Rx#:[id number] NS Inj 500 ML @ Wide Open IV. 500 / 500 SIG BOLUS ERIC Rx#:[id number] Narrative: Gen.: No acute distress Head: Normocephalic. Atraumatic. EENT: Pupils equal round and reactive to light. Nose without drainage. Airway intact. Throat without injection. Cardiovascular: Regular rate and rhythm. No murmurs, rubs or gallops. Respiratory: Lungs clear to auscultation bilaterally. No wheezes or rhonchi. Abdomen: Soft, nontender, nondistended. No peritoneal signs. Musculoskeletal: No gross deformities. No edema. Skin: Large area of erythema on the left inner thigh that is painful and warm to the touch. Multiple small nondraining abscesses on the upper and lower extremities. Neuro: Sensory and motor grossly intact. Cranial nerves II through XII grossly intact. Results - Labs CBC & Chem 7: 01/14/18 17:30 01/14/18 17:30 Labs: Laboratory Results - last 24 hr 01/14/18 01/14/18 01/14/18 17:30 17:30 17:30 WBC 10.2 RBC 3.75 L Hgb 12.1 Hct 35.3 MCV 94.2 MCH 32.4 MCHC 34.4 RDW 13.9 Plt Count 158 MPV 10.8 Neut % (Auto) 70.4 H Lymph % (Auto) 21.2 [place] % (Auto) 5.8 Eos % (Auto) 2.3 Baso % (Auto) 0.3 Neut # (Auto) 7.2 Lymph # (Auto) 2.2 [place] # (Auto) 0.6 Eos # (Auto) 0.2 Baso # (Auto) 0.0 WBC Differential . Differential Comment Auto diff final Sodium 139 Potassium 4.0 Chloride 107 Carbon Dioxide 25.6 Anion Gap 6 BUN 12 Creatinine 0.72 Estimated GFR Greater than 89 Random Glucose 85 Lactic Acid 0.6 Calcium 8.5 Total Bilirubin 0.2 AST 12 L ALT 16 Alkaline Phosphatase 48 Total Protein 7.5 Albumin 3.6 Caprini VTE Risk Assessment Caprini VTE Risk Assessment: No/Low Risk (score <= 1) Caprini Risk Assessment Model: Point Value = 1 Point Value = 2 Point Value = 3 Point Value = 5 Age 41-60 Minor surgery BMI > 25 kg/m2 Swollen legs Varicose veins or History of unexplained or recurrent spontaneous Oral contraceptives or hormone replacement Sepsis (< 1 month) Serious lung disease, including pneumonia (< 1 month) Abnormal pulmonary function Acute myocardial infarction Congestive heart failure (< 1 month) History of inflammatory bowel disease Medical patient at bed rest Age 61-74 Arthroscopic surgery Major open surgery (> 45 min) Laparoscopic surgery (> 45 min) Malignancy Confined to bed (> 72 hours) Immobilizing plaster cast Central venous access Age >= 75 History of VTE Family history of VTE Factor V Leiden Prothrombin [id number] Lupus anticoagulant Anticardiolipin antibodies Elevated serum homocysteine Heparin-induced thrombocytopenia Other congenital or acquired thrombophilia Stroke (< 1 month) Elective arthroplasty Hip, pelvis, or leg fracture Acute spinal cord injury (< 1 month) Prophylaxis Regimen: Total Risk Factor Score Risk Level Prophylaxis Regimen 0-1 Low Early ambulation 2 Moderate Order ONE of the following: *Sequential Compression Device (SCD) *Heparin 5000 units SQ BID 3-4 Higher Order ONE of the following medications: *Heparin 5000 units SQ TID *Enoxaparin/Lovenox 40 mg SQ daily (WT < 150 kg, CrCl > 30 mL/min) *Enoxaparin/Lovenox 30 mg SQ daily (WT < 150 kg, CrCl > 10-29 mL/min) *Enoxaparin/Lovenox 30 mg SQ BID (WT < 150 kg, CrCl > 30 mL/min) AND/OR *Sequential Compression Device (SCD) 5 or more Highest Order ONE of the following medications: *Heparin 5000 units SQ TID (Preferred with Epidurals) *Enoxaparin/Lovenox 40 mg SQ daily (WT < 150 kg, CrCl > 30 mL/min) *Enoxaparin/Lovenox 30 mg SQ daily (WT < 150 kg, CrCl > 10-29 mL/min) *Enoxaparin/Lovenox 30 mg SQ BID (WT < 150 kg, CrCl > 30 mL/min) AND *Sequential Compression Device (SCD) Assessment and Plan - Plan Assessment/plan: 1. Cellulitis IV clindamycin Toradol for pain Blood cultures pending 2. Vaginal discharge ED to perform GC/chlamydia and wet prep Evaluate and treat as indicated 3. Bipolar disorder Continue home BuSpar, Seroquel and trazodone FEN Regular diet Electrolytes: Monitor and replete as needed
[2018-01-14] MEDS ORDERED: Fluconazole 100 MG Tablet PO ONE (20:04)
[2018-01-14] MEDS: Ketorolac Inj 30 MG/ML (IVP) Vial IV.PUSH PRN (20:18)
[2018-01-14 20:52] LABS: Amphetamine Screen,Urine Neg (Neg); Barbiturate Screen,Urine Neg (Neg); Cannabinoid Screen,Urine Neg (Neg); Cocaine Screen,Urine Neg (Neg)
[2018-01-14 20:56] LABS: Opiate Screen,Urine Neg (Neg)
[2018-01-14] MEDS: Senna/Docusate Sodium 8.6/50 MG Tablet PO SCH (21:47)
[2018-01-14] MEDS: traZODone 100 MG Tablet PO SCH (21:47)
[2018-01-15] MEDS ORDERED: Clindamycin Inj 900 MG in Sodium Chlor 0.9% Inj 100 ML IV.SIG SCH ×2
[2018-01-15] MEDS: Ketorolac Inj 30 MG/ML (IVP) Vial IV.PUSH PRN (05:51)
--- NOTE | 2018-01-15 09:42 | P.PN ---
Subjective Interval history: Follow-up for cellulitis. Patient reports not much improvement overnight, however erythema has not worsened beyond marked borders. She complains of pain at the sites of cellulitis of bilateral medial thighs and her right forearm. She reports subjective fevers and chills, no documented fevers. She denies any other medical complaints including no chest pain, palpitations, shortness of breath. She adamantly denies any IV drug use. Physical Exam Vital signs: Vital Signs 01/14/18 14:50 01/14/18 20:00 01/14/18 22:41 Temperature 98.4 F 98.1 F Pulse Rate 112 H 80 Respiratory Rate 20 16 Blood Pressure 131/66 88/48 L 82/50 L Pulse Oximetry 98 97 01/15/18 00:00 01/15/18 04:00 01/15/18 08:44 Temperature 98.2 F 98.1 F 98.1 F Pulse Rate 81 75 68 Respiratory Rate 16 16 Blood Pressure 84/48 L 106/61 95/61 L Pulse Oximetry 98 99 100 Intake & Output 01/14/18 01/15/18 01/15/18 18:59 06:59 18:59 Intake Total 606 / 606 106 / 106 Balance 606 / 606 106 / 106 Weight 70.307 kg Intake: IV 606 / 606 106 / 106 Cleocin Inj 900 MG In NS Inj 106 / 106 106 / 106 100 ML @ 100 mls/hr IV.SIG Q8H ERIC Rx#:[id number] NS Inj 500 ML @ Wide Open IV. 500 / 500 SIG BOLUS ERIC Rx#:[id number] Other: # Voids 4 Narrative: GENERAL: Well-nourished, well-developed young female patient in [facility]. SKIN: Warm and dry. Large area of erythema surrounding to small pinpoint scabs , warm to touch, does not extend beyond marked borders. Multiple small nondraining abscesses on upper and lower extremities without significant fluctuance. HEENT: Normocephalic. Atraumatic. Pupils equal and round. Mucous membranes pink and moist. CARDIOVASCULAR: Regular rate and rhythm. No murmur appreciated. RESPIRATORY: No accessory muscle use. Clear to auscultation. Breath sounds equal bilaterally. GASTROINTESTINAL: Abdomen soft, non-tender, nondistended. Normoactive bowel sounds x4. MUSCULOSKELETAL: No obvious deformities. Extremities without clubbing, cyanosis , or edema. NEUROLOGICAL: Awake and alert. No obvious cranial nerve deficits. Motor grossly within normal limits. Moving all extremities spontaneously. Normal speech. PSYCHIATRIC: Appropriate mood and affect; insight and judgment normal. Results - Labs CBC & Chem 7: 01/14/18 17:30 01/15/18 08:14 Laboratory Results - last 24 hr 01/14/18 01/14/18 01/14/18 17:30 17:30 17:30 WBC 10.2 RBC 3.75 L Hgb 12.1 Hct 35.3 MCV 94.2 MCH 32.4 MCHC 34.4 RDW 13.9 Plt Count 158 MPV 10.8 Neut % (Auto) 70.4 H Lymph % (Auto) 21.2 [place] % (Auto) 5.8 Eos % (Auto) 2.3 Baso % (Auto) 0.3 Neut # (Auto) 7.2 Lymph # (Auto) 2.2 [place] # (Auto) 0.6 Eos # (Auto) 0.2 Baso # (Auto) 0.0 WBC Differential . Differential Comment Auto diff final Sodium 139 Potassium 4.0 Chloride 107 Carbon Dioxide 25.6 Anion Gap 6 BUN 12 Creatinine 0.72 Estimated GFR Greater than 89 Random Glucose 85 Lactic Acid 0.6 Calcium 8.5 Total Bilirubin 0.2 AST 12 L ALT 16 Alkaline Phosphatase 48 Total Protein 7.5 Albumin 3.6 Clue Cells (Wet Prep) Trichomonas (Wet Prep) Yeast (Wet Prep) Urine Opiates Screen Ur Barbiturates Screen Ur Amphetamines Screen U Benzodiazepines Scrn Urine Cocaine Screen U Cannabinoids Screen Chlam trachomat DNA PCR N.gonorrhoeae DNA (PCR) 01/14/18 01/14/18 01/14/18 20:00 20:00 20:00 WBC RBC Hgb Hct MCV MCH MCHC RDW Plt Count MPV Neut % (Auto) Lymph % (Auto) [place] % (Auto) Eos % (Auto) Baso % (Auto) Neut # (Auto) Lymph # (Auto) [place] # (Auto) Eos # (Auto) Baso # (Auto) WBC Differential Differential Comment Sodium Potassium Chloride Carbon Dioxide Anion Gap BUN Creatinine Estimated GFR Random Glucose Lactic Acid Calcium Total Bilirubin AST ALT Alkaline Phosphatase Total Protein Albumin Clue Cells (Wet Prep) None seen Trichomonas (Wet Prep) None seen Yeast (Wet Prep) None seen Urine Opiates Screen Neg Ur Barbiturates Screen Neg Ur Amphetamines Screen Neg U Benzodiazepines Scrn Neg Urine Cocaine Screen Neg U Cannabinoids Screen Neg Chlam trachomat DNA PCR Not detected N.gonorrhoeae DNA (PCR) Not detected Assessment and Plan - Plan 37-year-old female with a past medical history significant for bipolar disorder , recently discharged from inpatient treatment at [facility] for a episode of cutting and being off of her medications for several months presents to the emergency department for the evaluation of multiple areas of cellulitis on her left inner thigh, right ankle with various small abscesses on all 4 extremities. The patient denies IV drug abuse. Cellulitis: diffuse, throughout bilateral upper and lower extremities. Marked with skin marker. -Continue antibiotics with IV clindamycin -IV Toradol 30mg q6h for pain -Monitor blood cultures -Monitor RUE forearm abscess closely, consider soft tissue ultrasound if worsening Vaginal discharge: acute -GC/chlamydia and wet prep negative -Sp Diflucan 150mg x1 Bipolar disorder: chronic -Continue home BuSpar, Seroquel and trazodone Tobacco Use: chronic -counseled on cessation -nicotine patch DVT Prophylaxis: ambulation Discharge Planning: Discharge pending further clinical improvement and blood culture results.
[2018-01-15 09:43] LABS: Alanine Aminotransferase 17 U/L (10-53); Alkaline Phosphatase 36 U/L (45-117); Anion Gap 4 meq/L (5-15); Aspartate Aminotransferase 8 U/L (15-37); Blood Urea Nitrogen 16 mg/dL (7-18); Calcium 8.2 mg/dL (8.5-10.1); Carbon Dioxide 24.6 meq/L (21.0-32.0); Chloride 110 meq/L (98-107); Glomerular Filtration Rate Greater Than 89 mL/min (>89); Glucose,Random 80 mg/dL (74-106); Potassium 4.8 meq/L (3.5-5.1); Sodium 139 meq/L (136-145); Total Protein 6.7 g/dL (6.4-8.2)
[2018-01-15] MEDS: Senna/Docusate Sodium 8.6/50 MG Tablet PO SCH ×2 (09:52→21:47)
[2018-01-15] MEDS: QUEtiapine 100 MG Tablet PO SCH ×5 (09:53→19:41)
[2018-01-15] MEDS: Ketorolac Inj 30 MG/ML (IVP) Vial IV.PUSH SCH ×2 (12:12→17:36)
[2018-01-15] MEDS: Clindamycin 900 mg/NS Premix 900 MG/50 ML PIGGYBACK IV.SIG SCH (17:37)
[2018-01-15] MEDS: traZODone 100 MG Tablet PO SCH (21:47)
[2018-01-16] MEDS: Clindamycin 900 mg/NS Premix 900 MG/50 ML PIGGYBACK IV.SIG SCH ×3 (02:40→18:09)
[2018-01-16] MEDS: Ketorolac Inj 30 MG/ML (IVP) Vial IV.PUSH SCH ×5 (02:40→20:55)
[2018-01-16] MEDS: QUEtiapine 100 MG Tablet PO SCH ×3 (09:46→18:10)
[2018-01-16] MEDS: Senna/Docusate Sodium 8.6/50 MG Tablet PO SCH ×2 (09:47→20:55)
--- NOTE | 2018-01-16 10:29 | P.PN ---
Subjective Interval history: Follow-up for multiple abscesses and cellulitis. Patient reports not much improvement of the abscesses, which seem to be getting slightly larger and more fluctuant to touch. Denies fevers or chills overnight. The erythema has not progressed beyond the marked borders. She has no other medical complaints including no chest pain or shortness of breath. Physical Exam Vital signs: Vital Signs 01/15/18 12:56 01/15/18 16:31 01/15/18 20:00 Temperature 97.9 F 98.0 F 98.0 F Pulse Rate 79 82 84 Respiratory Rate 18 16 16 Blood Pressure 113/64 111/72 109/59 L Pulse Oximetry 100 99 99 01/16/18 00:00 01/16/18 04:00 01/16/18 05:00 Temperature 98.0 F 98.0 F Pulse Rate 66 73 79 Respiratory Rate 16 16 Blood Pressure 102/62 112/78 Pulse Oximetry 98 98 01/16/18 08:12 Temperature 97.9 F Pulse Rate 68 Respiratory Rate 18 Blood Pressure 109/74 Pulse Oximetry 100 Intake & Output 01/15/18 01/16/18 01/16/18 18:59 06:59 18:59 Intake Total 146 / 146 50 / 50 Balance 146 / 146 50 / 50 Intake: IV 146 / 146 50 / 50 Cleocin 900 mg/NS Premix 900 mg 50 / 50 50 / 50 In 50 ml @ 100 mls/hr IV.SIG Q8H ERIC Rx#:[id number] Cleocin Inj 900 MG In NS Inj 96 / 96 100 ML @ 100 mls/hr IV.SIG Q8H ERIC Rx#:[id number] Other: # Voids 4 Date of Last Bowel Movement 01/14/18 Narrative: GENERAL: Well-nourished, well-developed young female patient in [facility]. SKIN: Warm and dry. Large area of erythema at left anterior thigh with 2 small pinpoint scabs and small area of fluctuance, warm to touch, does not extend beyond marked borders. Small fluctuant abscess at right mid-forearm with surrounding erythema. Multiple other small nondraining abscesses on upper and lower extremities. HEENT: Normocephalic. Atraumatic. Pupils equal and round. Mucous membranes pink and moist. CARDIOVASCULAR: Regular rate and rhythm. No murmur appreciated. RESPIRATORY: No accessory muscle use. Clear to auscultation. Breath sounds equal bilaterally. GASTROINTESTINAL: Abdomen soft, non-tender, nondistended. Normoactive bowel sounds x4. MUSCULOSKELETAL: No obvious deformities. Extremities without clubbing, cyanosis , or edema. NEUROLOGICAL: Awake and alert. No obvious cranial nerve deficits. Motor grossly within normal limits. Moving all extremities spontaneously. Normal speech. PSYCHIATRIC: Appropriate mood and affect; insight and judgment normal. Results - Labs CBC & Chem 7: 01/14/18 17:30 01/15/18 08:14 Microbiology 01/14/18 17:30 Blood - Peripheral Aerobic Blood Culture - Preliminary No growth in 1 day 01/14/18 17:30 Blood - Peripheral Anaerobic Blood Culture - Preliminary No growth in 1 day 01/14/18 17:30 Blood - Peripheral Aerobic Blood Culture - Preliminary No growth in 1 day 01/14/18 17:30 Blood - Peripheral Anaerobic Blood Culture - Preliminary No growth in 1 day - Imaging Lower Extremity Ultrasound 01/16/18 00:00 CONCLUSION: 1. 2 small complex fluid collections or phlegmonous masses in the left thigh as above. Upper Extremity Ultrasound 01/16/18 00:00 CONCLUSION: 1. Small phlegmonous mass or possibly early abscess in the medial right forearm with adjacent vein patent. Assessment and Plan - Plan 37-year-old female with a past medical history significant for bipolar disorder , recently discharged from inpatient treatment at [facility] for a episode of cutting and being off of her medications for several months presents to the emergency department for the evaluation of multiple areas of cellulitis on her left inner thigh, right ankle with various small abscesses on all 4 extremities. The patient denies IV drug abuse. Acute Cellulitis with multiple small nondraining abscesses: diffuse, throughout bilateral upper and lower extremities. Marked with skin marker. -Continue antibiotics with IV clindamycin -IV Toradol 30mg q6h for pain -Blood cultures with NGTD -Soft tissue ultrasound of left anterior thigh shows 2 small complex fluid collections or phlegmonous masses in the left thigh -Soft tissue ultrasound of right forearm shows small phlegmonous mass or possibly early abscess in the medial right forearm with adjacent vein patent. -Consult general surgery to eval for I&D Vaginal discharge: acute -GC/chlamydia and wet prep negative -Sp Diflucan 150mg x1 Bipolar disorder: chronic -Continue home BuSpar, Seroquel and trazodone Tobacco Use: chronic -counseled on cessation -nicotine patch DVT Prophylaxis: ambulation Discharge Planning: Discharge pending further clinical improvement and evaluation by general surgery.
--- NOTE | 2018-01-16 14:02 | US ---
EXAM DATE: 01/16/2018 12:00 AM EDT AGE/SEX: 37 years / Female INDICATIONS: Right forearm abscess. CLINICAL DATA: This is the patient's initial encounter. Patient reports that signs and symptoms have been present for 3 days and indicates a pain score of 0/10. MEDICAL/SURGICAL HISTORY: . Depression. . Laparoscopic. COMPARISON: No prior exams available for comparison. FINDINGS: There is a presumed phlegmonous mass in the medial forearm measuring up to about 1 cm in diameter. Th e adjacent vein is patent. No drainable fluid collections identified. CONCLUSION: 1. Small phlegmonous mass or possibly early abscess in the medial right forearm with adjacent vein p atent. Electronically signed by: Tom Ruiz MD 01/16/2018 2:00 PM EDT
--- NOTE | 2018-01-16 14:03 | US ---
EXAM DATE: 01/16/2018 12:00 AM EDT AGE/SEX: 37 years / Female INDICATIONS: Left anterior thigh abscess x 2. CLINICAL DATA: This is the patient's initial encounter. Patient reports that signs and symptoms have been present for 3 days and indicates a pain score of 0/10. MEDICAL/SURGICAL HISTORY: . Depression. . Laparoscopic. COMPARISON: No prior exams available for comparison. FINDINGS: 2 complex fluid collections or phlegmonous masses are seen in the left thigh proximally and in the mi d anterior thigh measuring up to 1.3 cm and 1.7 cm in maximal diameter. Superficial veins are patent. CONCLUSION: 1. 2 small complex fluid collections or phlegmonous masses in the left thigh as above. Electronically signed by: Tom Ruiz MD 01/16/2018 2:02 PM EDT
[2018-01-16 20:35] VITALS: RESP 16
[2018-01-16] MEDS: traZODone 100 MG Tablet PO SCH (20:54)
[2018-01-17] MEDS: Clindamycin 900 mg/NS Premix 900 MG/50 ML PIGGYBACK IV.SIG SCH ×3 (01:26→18:32)
[2018-01-17] MEDS: Ketorolac Inj 30 MG/ML (IVP) Vial IV.PUSH SCH ×4 (03:50→20:26)
--- NOTE | 2018-01-17 09:48 | P.PN ---
Subjective Interval history: Follow-up for cellulitis/abscesses. Patient reports continued improvement of her cellulitis and abscesses. She states that erythema is significantly improved, regressed from the previously marked borders. Denies any drainage from the abscesses, scabbed over. She is concerned about a raised area on her right dorsal wrist drainage from this abscess. Denies any fevers or chills. She wants to go home. She is awaiting to be seen by surgery. Physical Exam Vital signs: Vital Signs 01/16/18 12:07 01/16/18 16:04 01/16/18 20:00 Temperature 98.5 F 98.5 F 98.1 F Pulse Rate 87 79 83 Respiratory Rate 18 20 16 Blood Pressure 99/57 L 107/53 L 101/59 L Pulse Oximetry 99 99 99 01/17/18 00:00 01/17/18 04:00 01/17/18 08:00 Temperature 97.8 F 97.8 F 98.3 F Pulse Rate 62 70 79 Respiratory Rate 16 16 16 Blood Pressure 97/56 L 108/70 136/73 Pulse Oximetry 98 99 98 Intake & Output 01/16/18 01/17/18 01/17/18 18:59 06:59 18:59 Intake Total 100 / 100 50 / 50 Output Total 320 / 320 Balance 100 / 100 -270 / -270 Weight 76.6 kg Intake: IV 100 / 100 50 / 50 Cleocin 900 mg/NS Premix 900 mg 100 / 100 50 / 50 In 50 ml @ 100 mls/hr IV.SIG Q8H ERIC Rx#:[id number] Output: Urine 320 / 320 Other: # Voids 4 Narrative: GENERAL: Well-nourished, well-developed young female patient in [facility]. SKIN: Warm and dry. Area of erythema at left anterior thigh has significantly improved, has 2 small pinpoint scabs without any fluctuance today. Small nonfluctuant abscess at right mid-forearm and right dorsal wrist with mild surrounding erythema. Overall much improved. HEENT: Normocephalic. Atraumatic. Pupils equal and round. Mucous membranes pink and moist. CARDIOVASCULAR: Regular rate and rhythm. No murmur appreciated. RESPIRATORY: No accessory muscle use. Clear to auscultation. Breath sounds equal bilaterally. MUSCULOSKELETAL: No obvious deformities. Extremities without clubbing, cyanosis , or edema. NEUROLOGICAL: Awake and alert. No obvious cranial nerve deficits. Motor grossly within normal limits. Moving all extremities spontaneously. Normal speech. PSYCHIATRIC: Appropriate mood and affect; insight and judgment normal. Results - Labs CBC & Chem 7: 01/14/18 17:30 01/15/18 08:14 Microbiology 01/14/18 17:30 Blood - Peripheral Aerobic Blood Culture - Preliminary No growth in 2 days 01/14/18 17:30 Blood - Peripheral Anaerobic Blood Culture - Preliminary No growth in 2 days 01/14/18 17:30 Blood - Peripheral Aerobic Blood Culture - Preliminary No growth in 2 days 01/14/18 17:30 Blood - Peripheral Anaerobic Blood Culture - Preliminary No growth in 2 days - Imaging Impressions Lower Extremity Ultrasound 01/16/18 00:00 CONCLUSION: 1. 2 small complex fluid collections or phlegmonous masses in the left thigh as above. Upper Extremity Ultrasound 01/16/18 00:00 CONCLUSION: 1. Small phlegmonous mass or possibly early abscess in the medial right forearm with adjacent vein patent. Assessment and Plan - Plan 37-year-old female with a past medical history significant for bipolar disorder , recently discharged from inpatient treatment at [facility] for a episode of cutting and being off of her medications for several months presents to the emergency department for the evaluation of multiple areas of cellulitis on her left inner thigh, right ankle with various small abscesses on all 4 extremities. The patient denies IV drug abuse. Acute Cellulitis with multiple small nondraining abscesses: diffuse, throughout bilateral upper and lower extremities. Marked with skin marker. -Continue antibiotics with IV clindamycin -IV Toradol 30mg q6h for pain -Blood cultures with NGTD -Soft tissue ultrasound of left anterior thigh shows 2 small complex fluid collections or phlegmonous masses in the left thigh -Soft tissue ultrasound of right forearm shows small phlegmonous mass or possibly early abscess in the medial right forearm with adjacent vein patent. -Consult general surgery to eval -Symptoms improving Vaginal discharge: acute -GC/chlamydia and wet prep negative -Sp Diflucan 150mg x1 Bipolar disorder: chronic -Continue home BuSpar, Seroquel and trazodone Tobacco Use: chronic -counseled on cessation -nicotine patch DVT Prophylaxis: ambulation Discharge Planning: Discharge pending evaluation and clearance by general surgery.
[2018-01-17] MEDS: Senna/Docusate Sodium 8.6/50 MG Tablet PO SCH ×2 (09:54→20:28)
[2018-01-17] MEDS: QUEtiapine 100 MG Tablet PO SCH ×3 (09:55→18:32)
[2018-01-17] MEDS: traZODone 100 MG Tablet PO SCH (20:26)
[2018-01-18] MEDS: Clindamycin 900 mg/NS Premix 900 MG/50 ML PIGGYBACK IV.SIG SCH (01:23)
[2018-01-18] MEDS: Ketorolac Inj 30 MG/ML (IVP) Vial IV.PUSH SCH ×2 (02:04→09:28)
[2018-01-18 08:27] VITALS: BP 114/76; PULSE 71; TEMP 98.5; O2SAT 97
--- NOTE | 2018-01-18 08:45 | P.DS ---
Date of admission: 01/14/18 18:58 Primary care physician: No Primary Care Physician Brief History from admission: 37-year-old female with a past medical history significant for bipolar disorder , recently discharged from inpatient treatment at [facility] for a episode of cutting and being off of her medications for several months presents to the emergency department for the evaluation of multiple areas of cellulitis on her left inner thigh, right ankle with various small abscesses on all 4 extremities. The patient denies IV drug abuse. She does not know where the infection came from. She denies any fever/chills. No chest pain or shortness of breath. No abdominal pain. No nausea/vomiting/diarrhea. The patient also complains of vaginal discharge. She reports that 3 weeks ago she was seen in urgent care and given prescriptions for doxycycline and Flagyl which she completed as instructed. She reports her vaginal discharge is still foul and copious. Patient update on day of discharge: Follow-up for cellulitis/abscesses. The patient reports significant improvement of her cellulitis and abscesses overnight. She states her right wrist lesion has gone down. She states her right forearm and left thigh lesions have almost resolved, with only minimal surrounding erythema. Denies any fevers or chills. Denies any other medical complaints. She wants to go home. DS: Diagnosis - Discharge Diagnosis (1) Cellulitis Status: Acute DS: Medications - Discharge Medications Prescriptions: cephalexin 500 mg PO TID 10 Days #60 cap sulfamethoxazole-trimethoprim [Bactrim DS] 1 tab PO Q12H 10 Days #20 tab DS: Summary Hospital Course: 37-year-old female with a past medical history significant for bipolar disorder , recently discharged from inpatient treatment at [facility] for a episode of cutting and being off of her medications for several months presents to the emergency department for the evaluation of multiple areas of cellulitis on her left inner thigh, right ankle with various small abscesses on all 4 extremities. The patient denies IV drug abuse. Acute Cellulitis with multiple small nondraining abscesses: diffuse, throughout bilateral upper and lower extremities. Marked with skin marker. Given antibiotics with IV clindamycin. IV Toradol 30mg q6h for pain. Blood cultures with NGTD. Soft tissue ultrasound of left anterior thigh shows 2 small complex fluid collections or phlegmonous masses in the left thigh. Soft tissue ultrasound of right forearm shows small phlegmonous mass or possibly early abscess in the medial right forearm with adjacent vein patent. Consult general surgery to thao, however did not see the patient. With IV antibiotics, the patient's abscesses/cellulitis significantly improved, and ultimately there was no fluctuance at any of the abscess sites and significantly regressed erythema upon discharge. The patient did have one new lesion arise at the right dorsal wrist, which was evaluated by hand surgery, but this also significantly improved on IV antibiotics and did not require any I&D. Patient requesting to be discharged. She remain afebrile and blood cultures were negative. She is requesting free or very cheap antibiotics at discharge. Discharged on bactrim and keflex [id number]. Vaginal discharge: acute. GC/chlamydia and wet prep negative. Sp Diflucan 150mg x1. Symptoms improved. Bipolar disorder: chronic. Continue home BuSpar, Seroquel and trazodone Tobacco Use: chronic. counseled on cessation - Time Spent with Patient Total time spent providing and/or coordinating discharge services: Less than 30 minutes - Quality: VTE Deep Vein Thrombosis/Pulmonary Embolism Present on Admission: No Exam Vital signs: Vital Signs 01/17/18 12:00 01/17/18 16:00 01/17/18 20:00 Temperature 98.2 F 98.0 F 98.3 F Pulse Rate 72 70 92 H Respiratory Rate 16 16 16 Blood Pressure 112/64 116/69 121/72 Pulse Oximetry 98 98 97 01/17/18 23:54 01/18/18 03:32 01/18/18 08:00 Temperature 98.3 F 97.8 F 98.5 F Pulse Rate 77 76 71 Respiratory Rate 16 16 16 Blood Pressure 105/67 100/56 L 114/76 Pulse Oximetry 97 98 97 Intake & Output 01/17/18 01/18/18 01/18/18 18:59 06:59 18:59 Intake Total 50 / 50 100 / 100 Balance 50 / 50 100 / 100 Weight 74.9 kg Intake: IV 50 / 50 100 / 100 Cleocin 900 mg/NS Premix 900 mg 50 / 50 100 / 100 In 50 ml @ 100 mls/hr IV.SIG Q8H [facility] Rx#:[id number] Other: # Voids 3 1 Date of Last Bowel Movement 01/14/18 # Bowel Movements 1 Narrative: GENERAL: Well-nourished, well-developed young female patient in NAD. SKIN: Warm and dry. Area of erythema at left anterior thigh has significantly improved, has 2 small pinpoint scabs without any fluctuance. Small healed abscess at right mid-forearm now scabbed over, no fluctuance/erythema. Right dorsal wrist with tiny raised nodule and minimal erythema, no fluctuance. Overall cellulitis significantly improved. HEENT: Normocephalic. Atraumatic. Pupils equal and round. Mucous membranes pink and moist. CARDIOVASCULAR: Regular rate and rhythm. No murmur appreciated. RESPIRATORY: No accessory muscle use. Clear to auscultation. Breath sounds equal bilaterally. MUSCULOSKELETAL: No obvious deformities. Extremities without clubbing, cyanosis , or edema. NEUROLOGICAL: Awake and alert. No obvious cranial nerve deficits. Motor grossly within normal limits. Moving all extremities spontaneously. Normal speech. PSYCHIATRIC: Appropriate mood and affect; insight and judgment normal. Results Procedures completed during hospitalization: None. Labs on day of discharge: Preliminary micro results at discharge 01/14/18 17:30 Aerobic Blood Culture - Preliminary Blood - Peripheral No growth in 3 days Anaerobic Blood Culture - Preliminary No growth in 3 days 01/14/18 17:30 Aerobic Blood Culture - Preliminary Blood - Peripheral No growth in 3 days Anaerobic Blood Culture - Preliminary No growth in 3 days - Impressions ITS Impressions Lower Extremity Ultrasound 01/16/18 00:00 CONCLUSION: 1. 2 small complex fluid collections or phlegmonous masses in the left thigh as above. Upper Extremity Ultrasound 01/16/18 00:00 CONCLUSION: 1. Small phlegmonous mass or possibly early abscess in the medial right forearm with adjacent vein patent. Discharge Plan - Discharge Disposition Patient Disposition: 01 Discharge Home - Discharge Condition Condition: Stable - Discharge Order Discharge Orders: Discharge Order (Routine); Ordered 01/18/18 Ordered By: Venice Gonsalez - Discharge Details Anticipated Discharge Date: 01/18/18 - Physicians Team Primary Care Provider: Primary Care Dustin,Luann Attending Provider: Haydee Hankins Other Providers: Gualberto Chappell MD ; Damian Hernandez MD
[2018-01-18] MEDS: Senna/Docusate Sodium 8.6/50 MG Tablet PO SCH (09:27)
[2018-01-18] MEDS: QUEtiapine 100 MG Tablet PO SCH (09:28)
--- NOTE | 2018-01-18 12:25 | MB ---
cc: ,Dov Hernandez DATE: 01/17/2018 CONSULTING PHYSICIAN: Dov Hernandez MD REQUESTING PHYSICIAN: TASH Candelario ATTENDING PHYSICIAN: Haydee Hankins MD CHIEF COMPLAINT: Right hand/forearm subcutaneous abscess. HISTORY OF PRESENT ILLNESS: Ms. Jesus is a 37-year-old female with a past medical history significant for bipolar disorder, who was recently discharged from inpatient treatment facility for an episode of cutting and being off her medications. She presented to the emergency department for evaluation of areas of cellulitis of the left thigh and right upper extremity. She presented initially to the ER on 01/14/2018 and was admitted to the internal medicine service. She has since been under their care and has been on IV clindamycin. She has had interval improvement of her left thigh and right forearm subcutaneous abscesses. Ultrasounds were obtained at the time of admission, which demonstrate a small 1 cm abscess localized to the volar forearm. She had an additional dorsal abscess appear within the last few days since admission and as such hand surgery consultation was requested. At bedside, the patient endorses minimal pain rated at 2/10 in severity. She endorses sensation intact to the right upper extremity. She denies drainage from the abscess. She denies other complaints. PAST MEDICAL HISTORY: Significant for bipolar disorder. PAST SURGICAL HISTORY: History of laparoscopy. FAMILY HISTORY: Noncontributory. SOCIAL HISTORY: Current everyday smoker, 1 pack per day. Endorses social alcohol use. MEDICATIONS: Please refer to the electronic medical record. DRUG ALLERGIES: INCLUDE CLARITHROMYCIN, ACETAMINOPHEN, MEPERIDINE, AND PROPOXYPHENE. REVIEW OF SYSTEMS: GENERAL: No fever or chills. ABDOMEN: No nausea, vomiting. PSYCHIATRIC: Positive for depression. Positive anxiety. MUSCULOSKELETAL: Right wrist and left thigh pain. NEUROLOGIC: No numbness, tingling. LUNGS: No cough. No wheezing. CARDIOVASCULAR: No chest pain. PHYSICAL EXAMINATION: GENERAL: She is alert and oriented x3 with a normal mood and affect. VITAL SIGNS: T-max of 98.3, respirations 16, pulse 77, blood pressure 105/67. MUSCULOSKELETAL: Focused evaluation of the right upper extremity demonstrates a small subcutaneous focus of induration along the dorsum of the wrist. There is a second site along the volar wrist. These are well localized without underlying fluctuance. There is no evidence of drainage or skin breach. They are tender to palpation. She has painless passive range of motion of the wrist, full range of motion of the hand. Sensation is intact to the median, radial, ulnar nerve distribution. There is a 2+ radial pulse. NEURO: As per above. ABDOMEN: Soft, distended. CARDIOVASCULAR: Regular rate and rhythm. Mild right upper extremity edema. LUNGS: Nonlabored breathing. PSYCHIATRIC: Normal mood and affect. LABORATORY DATA: White blood cell count 10.2 on 01/14/2018. ASSESSMENT AND PLAN: A 37-year-old female with a history of bipolar disorder with recent cutting event recently discharged from inpatient facility. Presents with right hand and wrist furuncles. She has been admitted on IV antibiotics for the last 3 days with interval improvement in her symptoms. I reviewed the diagnosis with Ms. Jesus. On my evaluation, she has a focal area of induration along the dorsum of the wrist that is of new onset. There is no significant palpable fluctuance. Given the rather small size of the subcutaneous infection and surrounding induration, I would not advocate for incision and drainage. I would recommend continued medical management with an eventual transition to p.o. regimen. We did discuss that furuncles may come to the surface and result in an eruption of purulence. However, there does not appear to be a deep component of the abscess that would provide indicated that would be an indication for surgical management at this time. All questions and concerns were addressed at bedside. Please contact orthopedic hand surgery should further evaluation be needed. Dov Hernandez MD, CM/misha , 08:20 AM , 08:31 AM
== END 2018-01-18 10:18 | disposition home or self-care (01) ==
LOC: NEDA 14:40 → NEPD 14:40 → NEPHCDU 20:19
PROVIDERS: ADMIT Hospitalist; ATTEND Hospitalist